=== PATIENT | female | born 2000 | race Caucasian/White ===

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

== ENCOUNTER 2022-01-01 08:55 | Emergency (ER) | payer MEDICAID ==
[~2022-01-01] VITALS: Ht 167.6 cm; Wt 75.9 kg
[~2022-01-01 08:55] MED LIST changes: +IBUP-2766 PO; -IBUP100O20 PO
[2022-01-01 09:01] VITALS: BP 111/75
[2022-01-01] MEDS ORDERED: AMOX-117 PO ×2 (10:21→10:26)
[2022-01-01] MEDS ORDERED: ketorolac trometh. 30mg/ml inj. IM ONE (10:35)
== END 2022-01-01 10:57 | disposition home or self-care (01) ==
LOC: ER 08:56
DX: J06.9 Acute upper respiratory infection, unspecified (principal); R07.81 Pleurodynia; R05.9 Cough, unspecified; R09.89 Other specified symptoms and signs involving the circulatory and respiratory systems; R50.9 Fever, unspecified; R11.2 Nausea with vomiting, unspecified; F17.200 Nicotine dependence, unspecified, uncomplicated; Z98.890 Other specified postprocedural states; Z79.2 Long term (current) use of antibiotics; Z79.899 Other long term (current) drug therapy
CPT/HCPCS: 71045; 87081; 87502; 87503; 87880; 96372; 99284; J1885